=== PATIENT | male | born 1940 ===

== ENCOUNTER → 2021-02-20 | Outpatient (CLI) | payer OTHER | LOC: ZCOL.LAB 17:03 | DX: H70.13 Chronic mastoiditis, bilateral (principal) ==

== ENCOUNTER → 2022-07-02 | Outpatient (REF) | payer OTHER | LOC: ZLAB.ENT 15:54 | DX: H60.391 Other infective otitis externa, right ear (principal) ==

== ENCOUNTER → 2022-09-13 | Outpatient (REF) | payer OTHER | LOC: ZCOL.LAB 16:57 | DX: H60.391 Other infective otitis externa, right ear (principal) ==